=== PATIENT | male | born 1995 | race Caucasian/White ===

== ENCOUNTER → 2025-02-17 02:21 | Outpatient (CLI) | payer OTHER, SELFPAY ==
--- NOTE | 2025-02-17 06:33 | DI.RAD_ITS ---
Exam(s) XR FOOT RT COMPLETE EXAM: XR FOOT RT COMPLETE CLINICAL HISTORY: ? HEALING,FX 2ND METATARSAL BONE RT FOOT,S92.321A. TECHNIQUE: 2D digital imaging was performed. Three views. COMPARISON: CR XR FOOT COMPLETE MIN 3V RT from 11/27/2024 FINDINGS: BONES: No acute fracture is present. There has been continued healing at the previously noted fracture of the 2nd metatarsal. No bony destructive lesion is seen. JOINTS: No dislocation present. No significant degenerative changes. SOFT TISSUE: Normal. IMPRESSION: Continued healing of 2nd metatarsal fracture. DATA REPOSITORY: RADIATION DOSE DELIVERED:
--- NOTE | 2025-02-17 06:33 | DI.RAD_ITS ---
Exam(s) XR FOOT LT COMPLETE EXAM: XR FOOT LT COMPLETE CLINICAL HISTORY: PAIN,PLANTAR FASCITIS,BURGER METATARSALGIA,LESION PLANTAR NERVE. TECHNIQUE: 2D digital imaging was performed. Three views. COMPARISON: CR XR FOOT RT COMPLETE from 02/17/2025 FINDINGS: BONES: No acute fracture is present. No bony destructive lesion is seen. JOINTS: No dislocation present. No significant degenerative changes. Plantar arch is maintained. SOFT TISSUE: Normal. IMPRESSION: Unremarkable radiographs of the left foot. DATA REPOSITORY: RADIATION DOSE DELIVERED:
== END ==
LOC: DI 02:22
PROVIDERS: PCP Physical Therapist; Visit Provider Podiatrist
DX: S92.321D Displaced fracture of second metatarsal bone, right foot, subsequent encounter for fracture with routine healing (principal); M79.671 Pain in right foot; M79.672 Pain in left foot; G57.63 Lesion of plantar nerve, bilateral lower limbs; M72.2 Plantar fascial fibromatosis; M67.01 Short Achilles tendon (acquired), right ankle; M67.02 Short Achilles tendon (acquired), left ankle
CPT/HCPCS: 73630